=== PATIENT | female | born 1955 | race Caucasian/White ===

== ENCOUNTER 2019-01-09 14:18 | Emergency (ER) | payer MEDICAID ==
[~2019-01-09] VITALS: Ht 172.7 cm; Wt 79.0 kg
[2019-01-09] MEDS ORDERED: IBUPROFEN 200MG TABLET ONE (15:12)
[2019-01-09] MEDS ORDERED: IBUPROFEN 600MG TABLET PO ONE (15:15)
[2019-01-09] MEDS ORDERED: AMPICILLIN SOD/SULBACTAM NA 3 G in SODIUM CHLORIDE 0.9% 100 ML IV STA (16:34)
[2019-01-09] MEDS ORDERED: VANCOMYCIN 1 G PREMIX 200 ML IV SCH (16:45)
[2019-01-09] MEDS ORDERED: KETOROLAC 30MG/ML VIAL IV ONE (17:15)
[2019-01-09] MEDS ORDERED: TETANUS, DIPHTHERIA, PERTUSSIS VAC/PF 0.5ML (>7YR OLD) IM ONE (17:30)
[2019-01-09 17:38] LABS: BASOPHILS % 0.7 % (0.0-2.0); EOSINOPHILS % 2.6 % (0.0-5.0); HEMATOCRIT. 36.1 % (36.0-48.0); HEMOGLOBIN. 12.2 g/dL (12.0-16.0); LYMPHOCYTES % 13.4 % (20.0-50.0); MEAN CORPUSCULAR VOLUME 89.2 fL (81.0-99.0); MEAN PLATELET VOLUME 8.3 fl (7.4-10.4); MONOCYTES % 5.2 % (2.0-8.0); NEUTROPHILS % 78.1 % (40.0-76.0); PLATELET 306 x1000/uL (130-400); RED BLOOD CELL COUNT 4.05 mill/uL (4.2-5.4); RED CELL DISTRIBUTION WIDTH 12.9 % (11.6-14.6)
[2019-01-09 17:46] LABS: CHLORIDE 109 mEq/L (98-107)
[2019-01-09 17:50] LABS: PARTIAL THROMBOPLASTIN TIME 26.6 sec (23.4-31.0); PROTHROMBIN TIME 9.8 sec (9.1-11.1)
[2019-01-09] MEDS ORDERED: SODIUM CHLORIDE 0.9% 1,000 ML IV ONE (17:58)
[2019-01-09 22:08] VITALS: BP 155/80
== END 2019-01-09 22:37 | disposition short-term general hospital (02) ==
LOC: ER 14:18
DX: S62.521B Displaced fracture of distal phalanx of right thumb, initial encounter for open fracture (principal); L03.011 Cellulitis of right finger; W54.0XXA Bitten by dog, initial encounter; Y93.89 Activity, other specified; Y92.017 Garden or yard in single-family (private) house as the place of occurrence of the external cause; Z71.6 Tobacco abuse counseling
CPT/HCPCS: 29130; 36415; 73140; 80048; 83605; 85025; 85610; 85730; 87040; 87070; 87205; 90471; 90715; 96365; 96366; 96367; 99285; J0295; J1885; J3370; J7030; J7050; Z7610